=== PATIENT | male | born 1945 | race Caucasian/White ===

== ENCOUNTER 2023-04-22 18:49 | Inpatient (IN) ==
--- NOTE | 2023-04-22 18:56 | Emergency Department Note ---
Impression & Plan Sepsis, Complicated urinary tract infection, Acute renal insufficiency ED Provider Note NAME: MORIS HAMILTON AGE: 77 SEX: M ARRIVES VIA: Ambulance INFORMANT: Patient ED PROVIDER(S): Kvng Zhou MD CHIEF COMPLAINT: UTI, shaking, chills. PLAN: Disposition: Admit MEDICAL DECISION MAKING: The patient is a pleasant 77-year-old gentleman with a past medical history of hypertension, hyperlipidemia who presents to emergency department via EMS and, by his for evaluation of acute onset of generalized weakness with chills, shaking/rigors, lightheadedness and body aches in setting of having symptoms of urinary urgency for the past several days where he was seen by his primary care doctor today and had a urinalysis obtained that was suggestive of infection started on Bactrim for which he took his first dose this afternoon. Patient and his had plan to obtain with family this evening and given that he felt okay they proceeded with this plan but acutely felt show as he was walking into the restaurant. Patient denies chest pain, shortness of breath, diarrhea, cough/congestion. Of note, the patient did arrive to emergency department during time of high volume, acuity and prolonged emergency department waiting times. On my evaluation the patient is well-appearing no distress, afebrile however with rigors heart in 120s, blood pressure 150s/90s and vital signs otherwise stable. He appears clinically dry. Abdomen is nontender. He exhibits generalized weakness no focal deficits. EKG without overt acute ischemia. CXR negative for acute cardiopulmonary process per my personal preliminary review/interpretation. WBC 14 K with neutrophil predominance and no left shift, nonspecific. H/H 3.3/38.8 without prior for comparison. Chemistry without metabolic acidosis with bicarbonate 22. Creatinine is 1.86 suspected to reflect CAIN though unclear if patient has component of CKD. Lactic acid 2.0, at the upper limit of normal. Electrolytes without significant abnormality. LFTs unremarkable. Lipase not elevated. Procalcitonin is not elevated. UA is suspicious for infection with positive nitrites and leuk esterase as well as WBCs. No bacteria is present. CT abdomen pelvis was negative for acute abnormalities. Given the patient's primary care doctor had elected to initiate treatment with Bactrim suspect resistant organisms as well as Pseudomonas UTI less likely at this time though no prior cultures are available for comparison. Empiric treatment was initiated with IV ceftriaxone following blood cultures. Administration provided with 2 L normal saline with caution given patient's renal insufficiency and so 30 cc/kg was deferred. Patient and his are in agreement for admission for further management. [facility] the patient for [facility]. Triage Nursing notes reviewed and agree them. Prior/external medical records reviewed Vital Signs: reviewed Differential diagnosis: Viral syndrome, otitis, pharyngitis, pneumonia, influenza, meningitis, urinary tract infection, sepsis, bacteremia, as well as other pathologies. ER treatment provided: See below. Diagnostics interpreted by me: ECG: Sinus tachycardia with occasional PVCs, 114 bpm, no overt ST elevation or depression, QTc 443 QRS 88. Cardiac Monitoring: An order for continuous cardiac monitoring was placed and demonstrated Sinus tachycardia with occasional PVCs, 114 bpm. Laboratory studies: See below Imaging studies: See below Consultation(s): [facility] will [facility] the patient for admission. HPI: The patient is a pleasant 77-year-old gentleman with a past medical history of hypertension, hyperlipidemia who presents to emergency department via EMS and, by his for evaluation of acute onset of generalized weakness with chills, shaking/rigors, lightheadedness and body aches in setting of having symptoms of urinary urgency for the past several days where he was seen by his primary care doctor today and had a urinalysis obtained that was suggestive of infection started on Bactrim for which he took his first dose this afternoon. Patient and his had plan to obtain with family this evening and given that he felt okay they proceeded with this plan but acutely felt show as he was walking into the restaurant. Patient denies chest pain, shortness of breath, diarrhea, cough/congestion. ROS: See above HPI for pertinent positives & negatives. A total of 10 systems reviewed and were otherwise negative. VITALS:See Below PHYSICAL EXAMINATION: GENERAL: Awake, alert, ill-appearing with rigors but in no acute distress HENT: Normocephalic, atraumatic. Oropharynx with dry-cracked mucous membranes and otherwise unremarkable. EYES: Normal conjunctiva. Sclera non-icteric. NECK: Supple. No nuchal rigidity. FROM. No JVD. RESPIRATORY: Clear to auscultation. CARDIAC: Tachycardic rate, normal rhythm. Extremities warm and well perfused. Pulses equal. ABDOMEN: Soft, non-distended. No tenderness to palpation. No rebound or guarding. No masses. RECTAL: Deferred. MUSCULOSKELETAL: Chest examination reveals no tenderness. The back is symmetrical on inspection without obvious abnormality. There is no CVA tenderness to palpation. No joint edema. LOWER EXTREMITIES: Calves are equal size bilaterally and non-tender. No edema. No discoloration. NEURO: No focal sensory or motor deficits noted. Generalized weakness with 4/5 strength x 4 Ext. SKIN: No rash or jaundice noted. ED COURSE: Critical Care: I have personally spent greater than 35 minutes of critical care time in the direct management of this patient. This includes bedside care, interpretation of diagnostic studies, and testing, discussion with consultants, patient, and family members, and other required patient management activities. This 35 minutes is in excess of all separately billable procedures. Kvng Zhou MD Past Med/Surg History Medical History Neuropathy Diabetes Hyperlipidemia Hypertension Family History Other Family history non-contributory Social History Smoking Status: Former smoker Tobacco Type: Cigarettes Preferred Language: [place] Home Health Caregiver Required: No Current Living Situation: Spouse Feels Safe at Home: Yes Assistive Devices: Crutches, Walker and Wheelchair Allergies Allergies Allergy/AdvReac Type Severity Reaction Status Date / Time Penicillins Allergy Unknown Verified 04/22/23 22:02 Home Meds Home Medications Medication Instructions Recorded Confirmed alogliptin 1 dose PO QAM 04/22/23 04/22/23 cholecalciferol (vitamin D3) 25 25 mcg PO QAM 04/22/23 04/22/23 mcg (1,000 unit) tablet (Vitamin D3) cyanocobalamin (vitamin B-12) 1,000 mcg PO QAM 04/22/23 04/22/23 1,000 mcg tablet (Vitamin B-12) esomeprazole magnesium 40 mg 40 mg PO QAM 04/22/23 04/22/23 capsule,delayed release gemfibrozil 600 mg tablet 600 mg PO AMHS 04/22/23 04/22/23 insulin detemir U-100 100 unit/mL 45 unit subcut QPM 04/22/23 04/22/23 (3 mL) subcutaneous pen (Levemir FlexPen) losartan 25 mg tablet 25 mg PO QAM 04/22/23 04/22/23 rosuvastatin 40 mg tablet 20 mg PO HS 04/22/23 04/22/23 sulfamethoxazole 800 1 tab PO DAILY 04/22/23 04/22/23 mg-trimethoprim 160 mg tablet Results & Data (ED) Vital Signs Vital Signs - 24 hr 04/22/23 18:45 04/22/23 18:45 04/22/23 18:55 Temperature 36.7 C Temperature Source Oral Pulse Rate 120 H 112 H Pulse Rate from SpO2 Sensor Pulse Rhythm Regular Pulse Strength Normal Respiratory Rate 22 Respiratory Effort / Characteristics Non-Labored Spontaneous Respiratory Depth Normal Respiratory Pattern Regular Blood Pressure 159/91 H Blood Pressure Mean 113 Blood Pressure Position Sitting Pulse Oximetry 98 94 Oxygen Delivery Method Room Air Room Air Sepsis Recent Fever Within 48 Hours Yes Sepsis New/Unexplained Change in Mental Status Yes Sepsis Action Taken by Nursing Physician Notified 04/22/23 18:55 04/22/23 18:56 04/22/23 18:56 Temperature Temperature Source Pulse Rate 115 H 117 H Pulse Rate from SpO2 Sensor 112 H 117 H Pulse Rhythm Pulse Strength Respiratory Rate 17 20 Respiratory Effort / Characteristics Respiratory Depth Respiratory Pattern Blood Pressure 73/44 L Blood Pressure Mean 64 Blood Pressure Position Pulse Oximetry 93 95 Oxygen Delivery Method Sepsis Recent Fever Within 48 Hours Sepsis New/Unexplained Change in Mental Status Sepsis Action Taken by Nursing 04/22/23 18:57 04/22/23 18:57 04/22/23 19:00 Temperature Temperature Source Pulse Rate 113 H Pulse Rate from SpO2 Sensor 113 H Pulse Rhythm Pulse Strength Respiratory Rate 19 Respiratory Effort / Characteristics Respiratory Depth Respiratory Pattern Blood Pressure 163/99 H 159/91 H Blood Pressure Mean 111 114 Blood Pressure Position Pulse Oximetry 94 Oxygen Delivery Method Sepsis Recent Fever Within 48 Hours Sepsis New/Unexplained Change in Mental Status Sepsis Action Taken by Nursing 04/22/23 19:00 04/22/23 19:10 04/22/23 19:20 Temperature Temperature Source Pulse Rate 111 H 113 H 113 H Pulse Rate from SpO2 Sensor 114 H 103 H 111 H Pulse Rhythm Pulse Strength Respiratory Rate 20 20 23 Respiratory Effort / Characteristics Respiratory Depth Respiratory Pattern Blood Pressure Blood Pressure Mean Blood Pressure Position Pulse Oximetry 94 94 93 Oxygen Delivery Method Sepsis Recent Fever Within 48 Hours Sepsis New/Unexplained Change in Mental Status Sepsis Action Taken by Nursing 04/22/23 19:22 04/22/23 19:30 04/22/23 19:30 Temperature Temperature Source Pulse Rate 113 H Pulse Rate from SpO2 Sensor Pulse Rhythm Pulse Strength Respiratory Rate 20 Respiratory Effort / Characteristics Non-Labored Spontaneous Respiratory Depth Normal Respiratory Pattern Blood Pressure 154/88 H Blood Pressure Mean 108 Blood Pressure Position Pulse Oximetry Oxygen Delivery Method Sepsis Recent Fever Within 48 Hours Sepsis New/Unexplained Change in Mental Status Sepsis Action Taken by Nursing 04/22/23 19:40 04/22/23 19:44 04/22/23 20:29 Temperature Temperature Source Pulse Rate 112 H Pulse Rate from SpO2 Sensor Pulse Rhythm Pulse Strength Respiratory Rate 19 Respiratory Effort / Characteristics Respiratory Depth Respiratory Pattern Blood Pressure 126/94 Blood Pressure Mean 101 Blood Pressure Position Pulse Oximetry 95 Oxygen Delivery Method Room Air Sepsis Recent Fever Within 48 Hours Sepsis New/Unexplained Change in Mental Status Sepsis Action Taken by Nursing 04/22/23 20:29 04/22/23 20:30 04/22/23 20:30 Temperature Temperature Source Pulse Rate 108 H 115 H Pulse Rate from SpO2 Sensor 110 H Pulse Rhythm Pulse Strength Respiratory Rate 31 H Respiratory Effort / Characteristics Respiratory Depth Respiratory Pattern Blood Pressure 127/75 Blood Pressure Mean 90 Blood Pressure Position Pulse Oximetry 95 Oxygen Delivery Method Sepsis Recent Fever Within 48 Hours Sepsis New/Unexplained Change in Mental Status Sepsis Action Taken by Nursing 04/22/23 20:38 04/22/23 20:40 04/22/23 20:50 Temperature 38.0 C H Temperature Source Oral Pulse Rate 106 H 105 H Pulse Rate from SpO2 Sensor 105 H 105 H Pulse Rhythm Pulse Strength Respiratory Rate 16 24 Respiratory Effort / Characteristics Respiratory Depth Respiratory Pattern Blood Pressure Blood Pressure Mean Blood Pressure Position Pulse Oximetry 96 94 Oxygen Delivery Method Sepsis Recent Fever Within 48 Hours Sepsis New/Unexplained Change in Mental Status Sepsis Action Taken by Nursing 04/22/23 21:00 04/22/23 21:00 04/22/23 21:10 Temperature Temperature Source Pulse Rate 104 H 103 H Pulse Rate from SpO2 Sensor 101 H 103 H Pulse Rhythm Pulse Strength Respiratory Rate 20 24 Respiratory Effort / Characteristics Respiratory Depth Respiratory Pattern Blood Pressure 116/72 Blood Pressure Mean 86 Blood Pressure Position Pulse Oximetry 94 94 Oxygen Delivery Method Sepsis Recent Fever Within 48 Hours Sepsis New/Unexplained Change in Mental Status Sepsis Action Taken by Nursing 04/22/23 21:20 04/22/23 21:30 04/22/23 21:31 Temperature Temperature Source Pulse Rate 103 H 108 H Pulse Rate from SpO2 Sensor 103 H Pulse Rhythm Pulse Strength Respiratory Rate 24 20 Respiratory Effort / Characteristics Respiratory Depth Respiratory Pattern Blood Pressure 95/80 L Blood Pressure Mean 88 Blood Pressure Position Pulse Oximetry 95 Oxygen Delivery Method Sepsis Recent Fever Within 48 Hours Sepsis New/Unexplained Change in Mental Status Sepsis Action Taken by Nursing 04/22/23 21:31 04/22/23 21:40 04/22/23 21:50 Temperature Temperature Source Pulse Rate 105 H 103 H Pulse Rate from SpO2 Sensor Pulse Rhythm Pulse Strength Respiratory Rate 18 29 H 19 Respiratory Effort / Characteristics Respiratory Depth Respiratory Pattern Blood Pressure Blood Pressure Mean Blood Pressure Position Pulse Oximetry Oxygen Delivery Method Sepsis Recent Fever Within 48 Hours Sepsis New/Unexplained Change in Mental Status Sepsis Action Taken by Nursing 04/22/23 22:00 04/22/23 22:00 04/22/23 22:10 Temperature Temperature Source Pulse Rate 99 H 104 H Pulse Rate from SpO2 Sensor Pulse Rhythm Pulse Strength Respiratory Rate 20 22 Respiratory Effort / Characteristics Respiratory Depth Respiratory Pattern Blood Pressure 120/75 Blood Pressure Mean 86 Blood Pressure Position Pulse Oximetry Oxygen Delivery Method Sepsis Recent Fever Within 48 Hours Sepsis New/Unexplained Change in Mental Status Sepsis Action Taken by Nursing 04/22/23 22:20 04/22/23 22:30 04/22/23 22:30 Temperature Temperature Source Pulse Rate 105 H 96 H Pulse Rate from SpO2 Sensor Pulse Rhythm Pulse Strength Respiratory Rate 20 21 Respiratory Effort / Characteristics Respiratory Depth Respiratory Pattern Blood Pressure 111/61 Blood Pressure Mean 87 Blood Pressure Position Pulse Oximetry Oxygen Delivery Method Sepsis Recent Fever Within 48 Hours Sepsis New/Unexplained Change in Mental Status Sepsis Action Taken by Nursing 04/22/23 22:40 04/22/23 22:50 04/22/23 23:00 Temperature Temperature Source Pulse Rate 93 H 101 H 96 H Pulse Rate from SpO2 Sensor Pulse Rhythm Pulse Strength Respiratory Rate 21 20 15 Respiratory Effort / Characteristics Respiratory Depth Respiratory Pattern Blood Pressure Blood Pressure Mean Blood Pressure Position Pulse Oximetry Oxygen Delivery Method Sepsis Recent Fever Within 48 Hours Sepsis New/Unexplained Change in Mental Status Sepsis Action Taken by Nursing 04/22/23 23:00 04/22/23 23:01 04/22/23 23:10 Temperature Temperature Source Pulse Rate 95 H 96 H Pulse Rate from SpO2 Sensor Pulse Rhythm Pulse Strength Respiratory Rate 24 Respiratory Effort / Characteristics Respiratory Depth Respiratory Pattern Blood Pressure 104/64 Blood Pressure Mean 73 Blood Pressure Position Pulse Oximetry Oxygen Delivery Method Sepsis Recent Fever Within 48 Hours Sepsis New/Unexplained Change in Mental Status Sepsis Action Taken by Nursing 04/22/23 23:20 04/22/23 23:30 04/22/23 23:40 Temperature Temperature Source Pulse Rate 99 H 112 H 104 H Pulse Rate from SpO2 Sensor Pulse Rhythm Pulse Strength Respiratory Rate 17 21 22 Respiratory Effort / Characteristics Respiratory Depth Respiratory Pattern Blood Pressure Blood Pressure Mean Blood Pressure Position Pulse Oximetry Oxygen Delivery Method Sepsis Recent Fever Within 48 Hours Sepsis New/Unexplained Change in Mental Status Sepsis Action Taken by Nursing 04/22/23 23:50 04/23/23 00:00 04/23/23 00:00 Temperature Temperature Source Pulse Rate 98 H 93 H Pulse Rate from SpO2 Sensor Pulse Rhythm Pulse Strength Respiratory Rate 14 25 H Respiratory Effort / Characteristics Respiratory Depth Respiratory Pattern Blood Pressure 108/64 Blood Pressure Mean 72 Blood Pressure Position Pulse Oximetry Oxygen Delivery Method Sepsis Recent Fever Within 48 Hours Sepsis New/Unexplained Change in Mental Status Sepsis Action Taken by Nursing Laboratory Data Attestation: I reviewed the patient's lab results. 04/22/23 19:00 04/23/23 00:28 Lab Results 04/22/23 04/22/23 04/22/23 Range/Units 19:00 19:10 19:22 WBC 14.00 H (4.8-10.8) K/ul RBC 4.45 L (4.70-6.10) M/uL Hgb 13.3 L (14.0-18.0) g/dl POC Hgb 13.6 L (14.0-18.0) g/dl Hct 38.8 L (42.0-52.0) % POC Hct 40 L (42-52) % MCV 87.2 (80.0-100.0) fL MCH 29.9 (25.0-34.0) pg MCHC 34.3 (32.0-36.0) g/dL RDW Std Deviation 42.3 (36.4-46.3) fL RDW Coeff of Natalie 13.3 (11.5-14.5) % Plt Count 232 (130-400) K/uL MPV 9.3 L (9.4-12.4) fL Immature Gran % (Auto) 0.6 % Neut % (Auto) 86.1 % Lymph % (Auto) 7.4 % Cache % (Auto) 4.1 % Eos % (Auto) 1.4 % Baso % (Auto) 0.4 % Neut # (Auto) 12.05 H (1.40-6.50) K/uL Lymph # (Auto) 1.03 L (1.20-3.40) K/uL Cache # (Auto) 0.58 (0.11-0.59) K/uL Eos # (Auto) 0.19 (0.00-0.50) K/uL Baso # (Auto) 0.06 (0.00-0.20) K/uL Immature Gran # (Auto) 0.09 (0.01-0.20) K/uL POC Sodium 139 (135-144) mmol/L Sodium 137 (136-145) mmol/L POC Potassium 4.7 (3.3-5.0) mmol/L Potassium 4.4 (3.5-5.1) mmol/L POC Chloride 105 (101-112) mmol/L Chloride 102 (98-107) mmol/L Carbon Dioxide 22 (21-32) mmol/L POC Total CO2 22 L (24-31) mmol/L Anion Gap 13 H (3-11) POC Anion Gap 17.0 (16-25) mmol/L POC BUN 42 H (7-18) mg/dl BUN 34 H (6-23) mg/dl Creatinine 1.86 H (0.6-1.4) mg/dl POC Creatinine 1.9 H (0.6-1.3) mg/dl Est Cr Clr Drug Dosing 37.1 ml/min Est GFR ( Amer) 39.8 ml/min Est GFR (Non-Af Amer) 34.4 ml/min BUN/Creatinine Ratio 18.3 (10-20) Glucose 161 H (70-99(Fasting)) mg/dl POC Glucose (other) 165 H (70-99) mg/dl Lactate 2.0 (0.4-2.0) mmol/L Calcium 9.7 (8.6-10.3) mg/dl POC Ioniz Calcium Thaddeus 1.18 (1.12-1.32) mmol/l Phosphorus 4.1 (2.5-4.9) mg/dl Magnesium 1.7 (1.7-2.4) mg/dl Total Bilirubin 0.5 (0.2-1.0) mg/dl Direct Bilirubin 0.1 (0-0.2) mg/dl AST 22 (13-39) U/L ALT 12 (7-52) U/L Alkaline Phosphatase 86 (34-104) U/L Total Creatine Kinase 98 (30-223) U/L Total Protein 8.3 (6.0-8.3) gm/dl Albumin 4.5 (3.4-5.0) gm/dl Lipase 16 (11-82) U/L Procalcitonin 0.21 (0-0.5) ng/ml Urine Color Urine Appearance (Clear) Urine pH (4.5-7.5) Ur Specific Brant (1.000-1.030) Urine Protein (Negative) Urine Glucose (UA) (Negative) Urine Ketones (Negative) Urine Blood (Negative) Urine Nitrite (Negative) Urine Bilirubin (Negative) Urine Urobilinogen (Negative) Ur Leukocyte Esterase (Negative) Urine WBC (Auto) (0-5) /hpf Urine RBC (Auto) (0-4) /hpf U Hyaline Cast (Auto) (0-5) /lpf U Epithel Cells (Auto) (0-5) /lpf Urine Bacteria (Auto) (Negative) Adenovirus (PCR) (NotDetected) B. pertussis DNA (PCR) (NotDetected) B.parapertussis DNA PCR (NotDetected) C. pneumoniae DNA (PCR) (NotDetected) Coronavirus OC43 (PCR) (NotDetected) Coronavirus HKU1 (PCR) (NotDetected) Coronavirus 229E (PCR) (NotDetected) SARS-CoV-2 (PCR) (NotDetected) Coronavirus NL63 (PCR) (NotDetected) Human Metapneumovir PCR (NotDetected) Influenza Type A (PCR) (NotDetected) Influenza Type B (PCR) (NotDetected) M. pneumoniae (PCR) (NotDetected) Parainfluenza 1 (PCR) (NotDetected) Parainfluenza 2 (PCR) (NotDetected) Parainfluenza 3 (PCR) (NotDetected) Parainfluenza 4 (PCR) (NotDetected) RSV (PCR) (NotDetected) Entero/Rhino (PCR) (NotDetected) 04/22/23 04/22/23 Range/Units 19:30 22:53 WBC (4.8-10.8) K/ul RBC (4.70-6.10) M/uL Hgb (14.0-18.0) g/dl POC Hgb (14.0-18.0) g/dl Hct (42.0-52.0) % POC Hct (42-52) % MCV (80.0-100.0) fL MCH (25.0-34.0) pg MCHC (32.0-36.0) g/dL RDW Std Deviation (36.4-46.3) fL RDW Coeff of Natalie (11.5-14.5) % Plt Count (130-400) K/uL MPV (9.4-12.4) fL Immature Gran % (Auto) % Neut % (Auto) % Lymph % (Auto) % Cache % (Auto) % Eos % (Auto) % Baso % (Auto) % Neut # (Auto) (1.40-6.50) K/uL Lymph # (Auto) (1.20-3.40) K/uL Cache # (Auto) (0.11-0.59) K/uL Eos # (Auto) (0.00-0.50) K/uL Baso # (Auto) (0.00-0.20) K/uL Immature Gran # (Auto) (0.01-0.20) K/uL POC Sodium (135-144) mmol/L Sodium (136-145) mmol/L POC Potassium (3.3-5.0) mmol/L Potassium (3.5-5.1) mmol/L POC Chloride (101-112) mmol/L Chloride (98-107) mmol/L Carbon Dioxide (21-32) mmol/L POC Total CO2 (24-31) mmol/L Anion Gap (3-11) POC Anion Gap (16-25) mmol/L POC BUN (7-18) mg/dl BUN (6-23) mg/dl Creatinine (0.6-1.4) mg/dl POC Creatinine (0.6-1.3) mg/dl Est Cr Clr Drug Dosing ml/min Est GFR ( Amer) ml/min Est GFR (Non-Af Amer) ml/min BUN/Creatinine Ratio (10-20) Glucose (70-99(Fasting)) mg/dl POC Glucose (other) (70-99) mg/dl Lactate (0.4-2.0) mmol/L Calcium (8.6-10.3) mg/dl POC Ioniz Calcium Thaddeus (1.12-1.32) mmol/l Phosphorus (2.5-4.9) mg/dl Magnesium (1.7-2.4) mg/dl Total Bilirubin (0.2-1.0) mg/dl Direct Bilirubin (0-0.2) mg/dl AST (13-39) U/L ALT (7-52) U/L Alkaline Phosphatase (34-104) U/L Total Creatine Kinase (30-223) U/L Total Protein (6.0-8.3) gm/dl Albumin (3.4-5.0) gm/dl Lipase (11-82) U/L Procalcitonin (0-0.5) ng/ml Urine Color Yellow Urine Appearance Cloudy A (Clear) Urine pH 6.0 (4.5-7.5) Ur Specific Brant 1.012 (1.000-1.030) Urine Protein 1+ H (Negative) Urine Glucose (UA) Negative (Negative) Urine Ketones Negative (Negative) Urine Blood 2+ H (Negative) Urine Nitrite Positive A (Negative) Urine Bilirubin Negative (Negative) Urine Urobilinogen Negative (Negative) Ur Leukocyte Esterase 1+ H (Negative) Urine WBC (Auto) >30 H (0-5) /hpf Urine RBC (Auto) >30 H (0-4) /hpf U Hyaline Cast (Auto) 1-5 (0-5) /lpf U Epithel Cells (Auto) 0-5 (0-5) /lpf Urine Bacteria (Auto) Negative (Negative) Adenovirus (PCR) Not Detected (NotDetected) B. pertussis DNA (PCR) Not Detected (NotDetected) B.parapertussis DNA PCR Not Detected (NotDetected) C. pneumoniae DNA (PCR) Not Detected (NotDetected) Coronavirus OC43 (PCR) Not Detected (NotDetected) Coronavirus HKU1 (PCR) Not Detected (NotDetected) Coronavirus 229E (PCR) Not Detected (NotDetected) SARS-CoV-2 (PCR) Not Detected (NotDetected) Coronavirus NL63 (PCR) Not Detected (NotDetected) Human Metapneumovir PCR Not Detected (NotDetected) Influenza Type A (PCR) Not Detected (NotDetected) Influenza Type B (PCR) Not Detected (NotDetected) M. pneumoniae (PCR) Not Detected (NotDetected) Parainfluenza 1 (PCR) Not Detected (NotDetected) Parainfluenza 2 (PCR) Not Detected (NotDetected) Parainfluenza 3 (PCR) Not Detected (NotDetected) Parainfluenza 4 (PCR) Not Detected (NotDetected) RSV (PCR) Not Detected (NotDetected) Entero/Rhino (PCR) Not Detected (NotDetected) Administered Medications Sodium Chloride (Nss) 1,000 mls @ 100 mls/hr IV .Q10H ONE Stop: 04/23/23 12:59 Last Admin: 04/23/23 02:54 Dose: 100 mls/hr Documented By: FLORENTINO Insulin Aspart (Insulin Aspart Per Unit Charge) 0 units SC ACHS [facility] Stop: 05/23/23 02:21 Last Admin: 04/23/23 04:22 Dose: 3 units Documented By: [email or web address] Co-signed By: MARIAM Discontinued Medications Sodium Chloride (Nss) 1,000 mls @ 999 mls/hr IV .Q1H1M [facility] Stop: 04/22/23 21:15 Last Infusion: 04/22/23 21:35 Dose: Infused Documented By: Admin: 04/22/23 20:31 Dose: 999 mls/hr Documented By: Infusion: 04/22/23 20:31 Dose: Infused Documented By: Admin: 04/22/23 19:34 Dose: 999 mls/hr Documented By: OWEN Acetaminophen (Ofirmev) 1,000 mg in 100 mls @ 400 mls/hr IV NOW STA Stop: 04/22/23 19:25 Last Infusion: 04/22/23 20:00 Dose: Infused Documented By: Admin: 04/22/23 19:34 Dose: 400 mls/hr Documented By: OWEN Ceftriaxone Sodium (Rocephin) 2,000 mg in 50 mls @ 100 mls/hr IV NOW STA Stop: 04/22/23 19:40 Last Infusion: 04/22/23 20:38 Dose: Infused Documented By: Admin: 04/22/23 19:34 Dose: 100 mls/hr Documented By: OWEN Magnesium Sulfate/Dextrose (Magnesium Sulfate / D5w) 1 gm in 100 mls @ 50 mls/hr IV Q2H [facility] Stop: 04/23/23 01:59 Last Infusion: 04/23/23 02:51 Dose: Infused Documented By: Admin: 04/23/23 00:51 Dose: 50 mls/hr Documented By: Infusion: 04/23/23 00:49 Dose: Infused Documented By: Admin: 04/22/23 22:49 Dose: 50 mls/hr Documented By: FLORENTINO Sodium Chloride (Nss) 1,000 mls @ 100 mls/hr IV .Q10H ONE Stop: 04/23/23 08:20 Last Infusion: 04/23/23 02:01 Dose: Infused Documented By: Admin: 04/22/23 22:41 Dose: 100 mls/hr Documented By: FLORENTINO Cefepime HCl (Maxipime) 2,000 mg in 20 mls @ 5 mls/min IV NOW STA; Protocol Stop: 04/23/23 00:09 Last Admin: 04/23/23 00:48 Dose: 5 mls/min Documented By: FLORENTINO Sodium Chloride (Nss) 500 mls @ 500 mls/hr IV .Q1H ONE Stop: 04/23/23 02:59 Last Infusion: 04/23/23 03:01 Dose: Infused Documented By: Admin: 04/23/23 02:01 Dose: 500 mls/hr Documented By: FLORENTINO Insulin Glargine (Lantus Per Unit Charge) 5 units SQ NOW STA Stop: 04/23/23 04:12 Last Admin: 04/23/23 04:38 Dose: 5 units Documented By: AGUILA Co-signed By: MARIAM Magnesium Sulfate/Dextrose (Magnesium Sulfate 1gm / D5w Bag) Confirm Administered Dose 1 gm IV .STK-MED ONE Stop: 04/22/23 22:00 Last Admin: 04/22/23 22:41 Dose: Not Given Documented By: FLORENTINO Miscellaneous Information (Patient's Allergy Info Needs Entered) 1 each N/A NOW STA Stop: 04/22/23 21:59 Last Admin: 04/22/23 22:31 Dose: Not Given Documented By: FLORENTINO Ondansetron HCl (Ondansetron Inj 2 Mg/Ml 2 Ml Vial) 4 mg IV NOW STA Stop: 04/22/23 19:16 Last Admin: 04/22/23 19:34 Dose: 4 mg Documented By: OWEN Piperacillin Sod/Tazobactam Sod (Piperacillin/Tazobactam 4.5 Gm/100ml D5w) Confirm Administered Dose 4.5 gm IV .STK-MED ONE Stop: 04/22/23 22:00 Last Admin: 04/22/23 22:41 Dose: Not Given Documented By: FLORENTINO Imaging Data Radiologist's Impression: Chest X-Ray 04/22/23 19:11 SINGLE VIEW CHEST CLINICAL HISTORY: Sepsis. FINDINGS: An AP, portable, upright chest radiograph is obtained. No prior studies are available for comparison at the time of dictation. The heart is enlarged. The pulmonary vasculature is noncongested. Nonspecific interstitial thickening is likely chronic. There is bibasilar scarring/atelectasis. No airspace consolidation or large pleural effusion is identified. No pneumothorax is seen. The skeletal structures are osteopenic. The bony thorax is grossly intact. IMPRESSION: Cardiomegaly with no acute cardiopulmonary abnormality identified. ACT 112: Negative or not required by law. Electronically signed by: Jin Covarrubias M.D. 04/22/2023 8:00 PM Abdomen/Pelvis CT 04/22/23 19:45 Exam(s): CT ABDOMEN + PELVIS Without Contrast EXAM: CT Abdomen and Pelvis Without Intravenous Contrast CLINICAL HISTORY: Reason for exam: sepsis, uti, cain. TECHNIQUE: Axial computed tomography images of the abdomen and pelvis without intravenous contrast. CTDI is 24.18 mGy and DLP is 1272 mGy-cm. Automated exposure control was utilized for the study. A dose lowering technique was utilized adhering to the principles of ALARA. COMPARISON: No relevant prior studies available. FINDINGS: Lung bases: Unremarkable. No mass. No consolidation. Mediastinum: Small hiatus hernia. ABDOMEN: Liver: Unremarkable. Gallbladder and bile ducts: Unremarkable. No calcified stones. No ductal dilation. Pancreas: Unremarkable. No ductal dilation. Spleen: Unremarkable. No splenomegaly. Adrenals: Unremarkable. No mass. Kidneys and ureters: Unremarkable. No obstructing stones. No hydronephrosis. Stomach and bowel: Unremarkable. No obstruction. No mucosal thickening. PELVIS: Appendix: No findings to suggest acute appendicitis. Bladder: Unremarkable. No stones. Reproductive: Prostatectomy. ABDOMEN and PELVIS: Intraperitoneal space: Unremarkable. No free air. No significant fluid collection. Bones/joints: Severe degenerative disc disease changes seen in the lumbar spine. No acute fracture. No dislocation. Soft tissues: Unremarkable. Vasculature: Unremarkable. No abdominal aortic aneurysm. Lymph nodes: Unremarkable. No enlarged lymph nodes. IMPRESSION: No acute abdominal process identified Electronically signed by: Jon Cruz MD 04/22/23 20:35 PM Discharge Plan Visit Data Chief Complaint: Weakness Stated Complaint: SUDDEN ONSET WEAKNESS, CONFUSION, SHAKING ED Provider: Kvng Zhou Discharge Problem: Sepsis, Complicated urinary tract infection, Acute renal insufficiency Discharge Instructions Interventions: ED Discharge Assessment Last Done: 04/23/23 02:22 Discharge Problem: Sepsis Qualifiers: Sepsis type: sepsis due to unspecified organism Sepsis acute organ dysfunction status: with acute organ dysfunction Severe sepsis acute organ dysfunction type: acute renal failure Acute renal failure type: unspecified Severe sepsis shock status: without septic shock Qualified Code(s): A41.9 - Sepsis, unspecified organism
[2023-04-22] MEDS ORDERED: cefTRIAXone SODIUM 2,000 MG/50 ML BAG IV STA (19:11)
[2023-04-22] MEDS ORDERED: ACETAMINOPHEN 1,000 MG/100 ML VIAL IV STA (19:11)
[2023-04-22] MEDS ORDERED: ONDANSETRON INJ 2 MG/ML 2 ML VIAL IV STA (19:15)
[2023-04-22 19:27] LABS: Basophils # (auto) 0.06 K/uL (0.00-0.20); Basophils % (auto) 0.4 %; Eosinophils # (auto) 0.19 K/uL (0.00-0.50); Eosinophils % (auto) 1.4 %; Hematocrit (blood only) 38.8 % (42.0-52.0); Hemoglobin 13.3 g/dl (14.0-18.0); Immature Granulocytes # (auto) 0.09 K/uL (0.01-0.20); Immature Granulocytes % (auto) 0.6 %; Lymphocytes # (auto) 1.03 K/uL (1.20-3.40); Lymphocytes % (auto) 7.4 %; Mean Corpuscular Hemoglobin 29.9 pg (25.0-34.0); Mean Corpuscular Hgb Conc 34.3 g/dL (32.0-36.0); Mean Corpuscular Volume 87.2 fL (80.0-100.0); Mean Platelet Volume 9.3 fL (9.4-12.4); Monocytes # (auto) 0.58 K/uL (0.11-0.59); Monocytes % (auto) 4.1 %; Neutrophils # (auto) 12.05 K/uL (1.40-6.50); Neutrophils % (auto) 86.1 %; Platelet Count 232 K/uL (130-400); RDW Coefficient of Variation 13.3 % (11.5-14.5); RDW Standard Deviation 42.3 fL (36.4-46.3); Red Blood Count 4.45 M/uL (4.70-6.10)
[2023-04-22 19:34] LABS: iSTAT Creatinine 1.9 mg/dl (0.6-1.3); iSTAT Hemoglobin 13.6 g/dl (14.0-18.0); iSTAT Ionized Calcium 1.18 mmol/l (1.12-1.32); iSTAT Potassium 4.7 mmol/L (3.3-5.0)
[2023-04-22] MEDS: SODIUM CHLORIDE 0.9% 1,000 ML IV SCH ×2 (19:34→20:31)
--- NOTE | 2023-04-22 20:02 | XRay Report ---
SINGLE VIEW CHEST CLINICAL HISTORY: Sepsis. FINDINGS: An AP, portable, upright chest radiograph is obtained. No prior studies are available for c omparison at the time of dictation. The heart is enlarged. The pulmonary vasculature is noncongested. Nonspecific interstitial thickening is likely chronic. There is bibasilar scarring/atelectasis. No a irspace consolidation or large pleural effusion is identified. No pneumothorax is seen. The skeletal structures are osteopenic. The bony thorax is grossly intact. IMPRESSION: Cardiomegaly with no acute cardiopulmonary abnormality identified. ACT 112: Negative or not required by law. Electronically signed by: Jin Covarrubias M.D. 04/22/2023 8:00 PM
[2023-04-22 20:04] LABS: Alanine Aminotransferase 12 U/L (7-52); Albumin Level 4.5 gm/dl (3.4-5.0); Alkaline Phosphatase 86 U/L (34-104); Anion Gap 13 (3-11); Aspartate Aminotransferase 22 U/L (13-39); BUN Creatinine Ratio 18.3 (10-20); Bilirubin,Total 0.5 mg/dl (0.2-1.0); Blood Urea Nitrogen 34 mg/dl (6-23); Calcium 9.7 mg/dl (8.6-10.3); Carbon Dioxide 22 mmol/L (21-32); Chloride 102 mmol/L (98-107); Creatine Kinase 98 U/L (30-223); Creatinine Clr Calc Pharmacy 37.1 ml/min; Est GFR (African American) 39.8 ml/min; Est GFR (Non-African American) 34.4 ml/min; Glucose 161 mg/dl (70-99(Fasting)); Lipase 16 U/L (11-82); Magnesium 1.7 mg/dl (1.7-2.4); Phosphorus 4.1 mg/dl (2.5-4.9); Potassium 4.4 mmol/L (3.5-5.1); Sodium 137 mmol/L (136-145); Total Protein 8.3 gm/dl (6.0-8.3)
--- NOTE | 2023-04-22 20:37 | CT Scan Report ---
Exam(s): CT ABDOMEN + PELVIS Without Contrast EXAM: CT Abdomen and Pelvis Without Intravenous Contrast CLINICAL HISTORY: Reason for exam: sepsis, uti, marcela. TECHNIQUE: Axial computed tomography images of the abdomen and pelvis without intravenous contrast. CTDI is 24.18 mGy and DLP is 1272 mGy-cm. Automated exposure control was utilized for the study. A dose lowering technique was utilized adhering to the principles of ALARA. COMPARISON: No relevant prior studies available. FINDINGS: Lung bases: Unremarkable. No mass. No consolidation. Mediastinum: Small hiatus hernia. ABDOMEN: Liver: Unremarkable. Gallbladder and bile ducts: Unremarkable. No calcified stones. No ductal dilation. Pancreas: Unremarkable. No ductal dilation. Spleen: Unremarkable. No splenomegaly. Adrenals: Unremarkable. No mass. Kidneys and ureters: Unremarkable. No obstructing stones. No hydronephrosis. Stomach and bowel: Unremarkable. No obstruction. No mucosal thickening. PELVIS: Appendix: No findings to suggest acute appendicitis. Bladder: Unremarkable. No stones. Reproductive: Prostatectomy. ABDOMEN and PELVIS: Intraperitoneal space: Unremarkable. No free air. No significant fluid collection. Bones/joints: Severe degenerative disc disease changes seen in the lumbar spine. No acute fracture. No dislocation. Soft tissues: Unremarkable. Vasculature: Unremarkable. No abdominal aortic aneurysm. Lymph nodes: Unremarkable. No enlarged lymph nodes. IMPRESSION: No acute abdominal process identified Electronically signed by: Jon Cruz MD 04/22/23 20:35 PM
[2023-04-22 20:53] LABS: Adenovirus PCR Not Detected (NotDetected); Bordetella parapertussis PCR Not Detected (NotDetected); Bordetella pertussis PCR Not Detected (NotDetected); Chlamydia pneumoniae PCR Not Detected (NotDetected); Coronavirus 229E PCR Not Detected (NotDetected); Coronavirus CoV-2 (COVID19)PCR Not Detected (NotDetected); Coronavirus HKU1 PCR Not Detected (NotDetected); Coronavirus NL63 PCR Not Detected (NotDetected); Coronavirus OC43PCR Not Detected (NotDetected); Human Metapneumovirus PCR Not Detected (NotDetected); Influenza A PCR Not Detected (NotDetected); Influenza B PCR Not Detected (NotDetected); Mycoplasma pneumoniae PCR Not Detected (NotDetected); Parainfluenza Virus 1 PCR Not Detected (NotDetected); Parainfluenza Virus 2 PCR Not Detected (NotDetected); Parainfluenza Virus 3 PCR Not Detected (NotDetected); Parainfluenza Virus 4 PCR Not Detected (NotDetected); Respiratory Syncytial VirusPCR Not Detected (NotDetected); Rhinovirus/Enterovirus PCR Not Detected (NotDetected)
[2023-04-22] MEDS ORDERED: Patient's ALLERGY Info needs ENTERED STA (21:58)
[2023-04-22] MEDS ORDERED: MAGNESIUM SULFATE 1GM / D5W BAG IV ONE (21:59)
[2023-04-22] MEDS ORDERED: PIPERACILLIN/TAZOBACTAM 4.5 GM/100ML D5W IV ONE (21:59)
[2023-04-22] MEDS ORDERED: PIPERACILLIN/TAZOBACTAM 4.5 GM/100 ML BAG IV ONE (22:00)
[2023-04-22] MEDS ORDERED: SODIUM CHLORIDE 0.9% 1,000 ML IV ONE (22:21)
[2023-04-22] MEDS: MAGNESIUM SULFATE / D5W 1 GM/100 ML BAG IV SCH (22:49)
[2023-04-22 23:23] LABS: Appearance Urine Cloudy (Clear); Bacteria Urine Automated Negative (Negative); Bilirubin Urine Negative (Negative); Blood Urine 2+ (Negative); Color Urine Yellow; Epithelial Cell Urine Auto 0-5 /lpf (0-5); Glucose Urine UA Negative (Negative); Ketones Urine Negative (Negative); Leukocyte Esterase Urine 1+ (Negative); Nitrite Urine Positive (Negative); Protein Urine 1+ (Negative); RBC Urine Automated >30 /hpf (0-4); Specific Gravity Urine 1.012 (1.000-1.030); Urobilinogen Urine Negative (Negative); WBC Urine Automated >30 /hpf (0-5)
--- NOTE | 2023-04-23 00:05 | History & Physical Report ---
Date of Service April 23, 2023 Assessment & Plan (1) Severe sepsis: Plan: SIRS plus ARF on CKD (baseline kidney dysfunction unknown) Secondary to complicated UTI hypertension, BP on the lower side hyperlipidemia on statin Rx DM2 insulin requiring, unknown baseline control hx amyloidosis hx prostate cancer status post surgery short-term memory loss as per family, patient currently mentating well Anemia, unknown duration past tobacco abuse Medical telemetry CS, Cefepime Monitor creatinine response to IVF Renal ultrasound if without improvement Appropriate to hold home BP meds for now Follow outpatient urine CS, recent CBC, CHEM (to establish baseline hemoglobin, creatinine) from PCP's office (Dr. Blum) Basal bolus insulin adjusted for clear liquid diet for now, ISS BG goal 1 10-1 40, carb count coverage, check hemoglobin A1c DVT prophylaxis. Heparin subcu Full code Patient requesting updates from providers. Ms. Teo Joyner, contact #[phone]. Text document was generated using [employer] voice recognition software. It may contain grammatical or spelling errors. Kindly contact undersigned for clarification of any documentation item in question. History of Present Illness Chief Complaint: Weakness Primary Care Provider: Aurelio Blum MD History obtained from patient, family, and records. Medical history significant for hypertension, hyperlipidemia, DM2 insulin requiring, CRI (unknown baseline), amyloidosis, prostate cancer status post surgery, history urolithiasis, GERD, short-term memory loss as per family, past tobacco abuse. Patient is a resident of [place], [place] who is currently in town to celebrate the birthday of her daughter who lives locally. Yesterday morning, patient woke up feeling weak. Some urinary retention without pain or gross hematuria. Increasing weakness noted. Patient seen at PCP's office yesterday. Outpatient UA showed possible infection. Bactrim prescribed by outpatient provider. Worsening weakness despite first dose of Bactrim prior to leaving home. Lowest SBP of 70s noted at the ER. IV ceftriaxone administered at the ER. Patient currently feeling much better. SBP currently 100s. 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 Allergies Allergy/AdvReac Type Severity Reaction Status Date / Time Penicillins Allergy Unknown Verified 04/22/23 22:02 Home Medications Medication Instructions Recorded Confirmed Type alogliptin 1 dose PO QAM 04/22/23 04/22/23 History cholecalciferol (vitamin D3) 25 25 mcg PO QAM 04/22/23 04/22/23 History mcg (1,000 unit) tablet (Vitamin D3) cyanocobalamin (vitamin B-12) 1,000 mcg PO QAM 04/22/23 04/22/23 History 1,000 mcg tablet (Vitamin B-12) esomeprazole magnesium 40 mg 40 mg PO QAM 04/22/23 04/22/23 History capsule,delayed release gemfibrozil 600 mg tablet 600 mg PO AMHS 04/22/23 04/22/23 History insulin detemir U-100 100 unit/mL 45 unit subcut QPM 04/22/23 04/22/23 History (3 mL) subcutaneous pen (Levemir FlexPen) losartan 25 mg tablet 25 mg PO QAM 04/22/23 04/22/23 History rosuvastatin 40 mg tablet 20 mg PO HS 04/22/23 04/22/23 History sulfamethoxazole 800 1 tab PO DAILY 04/22/23 04/22/23 History mg-trimethoprim 160 mg tablet Past Med/Surg History Medical History Neuropathy Diabetes Hyperlipidemia Hypertension Family History Other Family history non-contributory Social History Smoking Status: Former smoker Tobacco Type: Cigarettes Preferred Language: [place] Staffing Consultant Required: No Current Living Situation: Spouse Feels Safe at Home: Yes Assistive Devices: Crutches, Walker and Wheelchair Review of Systems Review of Systems: As per HPI, all other systems reviewed and negative Physical Exam Physical Exam: GENERAL: Comfortable, pleasant, oriented to year no respiratory distress SKIN: Pallor, warm HEENT: Pale palpebral conjunctivae, no ptosis, dry buccal mucosa NECK : Supple, no tenderness CHEST : CTA, no tenderness HEART : RRR, no obvious murmurs ABDOMEN: Some distention, nontender EXTREMITIES : No LE swelling/tenderness, no other conspicuous deformities noted NEUROLOGIC : Coherent, no facial asymmetry, gait and stance not assessed Results & Data Results & Data Vital Signs (Past 12 Hours) Vital Signs Temp Pulse Resp BP Pulse Ox O2 Del Method 04/22/23 23:01 95 H 04/22/23 21:50 19 04/22/23 21:40 103 H 29 H 04/22/23 21:31 105 H 18 04/22/23 21:31 95/80 L 04/22/23 21:30 108 H 20 04/22/23 21:20 103 H 24 95 04/22/23 21:10 103 H 24 94 04/22/23 21:00 116/72 04/22/23 21:00 104 H 20 94 04/22/23 20:50 105 H 24 94 04/22/23 20:40 106 H 16 96 04/22/23 20:38 38.0 C H 04/22/23 20:30 115 H 31 H 95 04/22/23 20:30 127/75 04/22/23 20:29 108 H 04/22/23 20:29 126/94 04/22/23 19:44 95 Room Air 04/22/23 19:40 112 H 19 04/22/23 19:30 113 H 20 04/22/23 19:30 154/88 H 04/22/23 19:20 113 H 23 93 04/22/23 19:10 113 H 20 94 04/22/23 19:00 111 H 20 94 04/22/23 19:00 159/91 H 04/22/23 18:57 163/99 H 04/22/23 18:57 113 H 19 94 04/22/23 18:56 117 H 20 95 04/22/23 18:56 73/44 L 04/22/23 18:55 115 H 17 93 04/22/23 18:55 112 H 04/22/23 18:45 94 Room Air 04/22/23 18:45 36.7 C 120 H 22 159/91 H 98 Room Air Laboratory Results Laboratory Results WBC 14.00 K/ul (4.8-10.8) H 04/22/23 19:00 RBC 4.45 M/uL (4.70-6.10) L 04/22/23 19:00 Hgb 13.3 g/dl (14.0-18.0) L 04/22/23 19:00 POC Hgb 13.6 g/dl (14.0-18.0) L 04/22/23 19: Hct 38.8 % (42.0-52.0) L 04/22/23 19:00 POC Hct 40 % (42-52) L 04/22/23: MCV 87.2 fL (80.0-100.0) 04/22/23 19:00 MCH 29.9 pg (25.0-34.0) 04/22/23 19: MCHC 34.3 g/dL (32.0-36.0) 04/22/23 19: RDW Std Deviation 42.3 fL (36.4-46.3) 04/22/23 19: RDW Coeff of Natalie 13.3 % (11.5-14.5) 04/22/23 19: Plt Count 232 K/uL (130-400) 04/22/23 19: MPV 9.3 fL (9.4-12.4) L 04/22/23 19: Immature Gran % (Auto) 0.6 % 04/22/23 19:00 Neut % (Auto) 86.1 % 04/22/23 19:00 Lymph % (Auto) 7.4 % 04/22/23 19:00 [place] % (Auto) 4.1 % 04/22/23 19:00 Eos % (Auto) 1.4 % 04/22/23 19:00 Baso % (Auto) 0.4 % 04/22/23 19:00 Neut # (Auto) 12.05 K/uL (1.40-6.50) H 04/22/23 19:00 Lymph # (Auto) 1.03 K/uL (1.20-3.40) L 04/22/23 19:00 [place] # (Auto) 0.58 K/uL (0.11-0.59) 04/22/23 19:00 Eos # (Auto) 0.19 K/uL (0.00-0.50) 04/22/23 19:00 Baso # (Auto) 0.06 K/uL (0.00-0.20) 04/22/23 19:00 Immature Gran # (Auto) 0.09 K/uL (0.01-0.20) 04/22/23 19:00 POC Sodium 139 mmol/L (135-144) 04/22/23 19:22 Sodium 137 mmol/L (136-145) 04/22/23 19:00 POC Potassium 4.7 mmol/L (3.3-5.0) 04/22/23 19:22 Potassium 4.4 mmol/L (3.5-5.1) 04/22/23 19:00 POC Chloride 105 mmol/L (101-112) 04/22/23 19: Chloride 102 mmol/L (98-107) 04/22/23 19:00 Carbon Dioxide 22 mmol/L (21-32) 04/22/23 19:00 POC Total CO2 22 mmol/L (24-31) L 04/22/23:22 Anion Gap 13 (3-11) H 04/22/23 19:00 POC Anion Gap 17.0 mmol/L (16-25) 04/22/23 19:22 POC BUN 42 mg/dl (7-18) H 04/22/23:22 BUN 34 mg/dl (6-23) H 04/22/23 19:00 Creatinine 1.86 mg/dl (0.6-1.4) H 04/22/23 19:00 POC Creatinine 1.9 mg/dl (0.6-1.3) H 04/22/23 19:22 Est Cr Clr Drug Dosing 37.1 ml/min 04/22/23 19:00 Est GFR ( Amer) 39.8 ml/min 04/22/23 19:00 Est GFR (Non-Af Amer) 34.4 ml/min 04/22/23 19:00 BUN/Creatinine Ratio 18.3 (10-20) 04/22/23 19:00 Glucose 161 mg/dl (70-99(Fasting)) H 04/22/23 19:00 POC Glucose (other) 165 mg/dl (70-99) H 04/22/23 19:22 Lactate 2.0 mmol/L (0.4-2.0) 04/22/23 19:10 Calcium 9.7 mg/dl (8.6-10.3) 04/22/23 19:00 POC Ioniz Calcium Thaddeus 1.18 mmol/l (1.12-1.32) 04/22/23 19:22 Phosphorus 4.1 mg/dl (2.5-4.9) 04/22/23 19:00 Magnesium 1.7 mg/dl (1.7-2.4) 04/22/23 19:00 Total Bilirubin 0.5 mg/dl (0.2-1.0) 04/22/23 19:00 Direct Bilirubin 0.1 mg/dl (0-0.2) 04/22/23 19:00 AST 22 U/L (13-39) 04/22/23 19:00 ALT 12 U/L (7-52) 04/22/23 19:00 Alkaline Phosphatase 86 U/L (34-104) 04/22/23 19:00 Total Creatine Kinase 98 U/L (30-223) 04/22/23 19:00 Total Protein 8.3 gm/dl (6.0-8.3) 04/22/23 19:00 Albumin 4.5 gm/dl (3.4-5.0) 04/22/23 19:00 Lipase 16 U/L (11-82) 04/22/23 19:00 Procalcitonin 0.21 ng/ml (0-0.5) 04/22/23 19:00 Urine Color Yellow 04/22/23 22:53 Urine Appearance Cloudy (Clear) A 04/22/23 22:53 Urine pH 6.0 (4.5-7.5) 04/22/23 22:53 Ur Specific [place] 1.012 (1.000-1.030) 04/22/23 22:53 Urine Protein 1+ (Negative) H 04/22/23 22:53 Urine Glucose (UA) Negative (Negative) 04/22/23 22:53 Urine Ketones Negative (Negative) 04/22/23 22:53 Urine Blood 2+ (Negative) H 04/22/23 22:53 Urine Nitrite Positive (Negative) A 04/22/23 22:53 Urine Bilirubin Negative (Negative) 04/22/23 22:53 Urine Urobilinogen Negative (Negative) 04/22/23 22:53 Ur Leukocyte Esterase 1+ (Negative) H 04/22/23 22:53 Urine WBC (Auto) >30 /hpf (0-5) H 04/22/23 22:53 Urine RBC (Auto) >30 /hpf (0-4) H 04/22/23 22:53 U Hyaline Cast (Auto) 1-5 /lpf (0-5) 04/22/23 22:53 U Epithel Cells (Auto) 0-5 /lpf (0-5) 04/22/23 22:53 Urine Bacteria (Auto) Negative (Negative) 04/22/23 22:53 Adenovirus (PCR) Not Detected (NotDetected) 04/22/23 19:30 B. pertussis DNA (PCR) Not Detected (NotDetected) 04/22/23 19:30 B.parapertussis DNA PCR Not Detected (NotDetected) 04/22/23 19:30 C. pneumoniae DNA (PCR) Not Detected (NotDetected) 04/22/23 19:30 Coronavirus OC43 (PCR) Not Detected (NotDetected) 04/22/23 19:30 Coronavirus HKU1 (PCR) Not Detected (NotDetected) 04/22/23 19:30 Coronavirus 229E (PCR) Not Detected (NotDetected) 04/22/23 19:30 SARS-CoV-2 (PCR) Not Detected (NotDetected) 04/22/23 19:30 Coronavirus NL63 (PCR) Not Detected (NotDetected) 04/22/23 19:30 Human Metapneumovir PCR Not Detected (NotDetected) 04/22/23 19:30 Influenza Type A (PCR) Not Detected (NotDetected) 04/22/23 19:30 Influenza Type B (PCR) Not Detected (NotDetected) 04/22/23 19:30 M. pneumoniae (PCR) Not Detected (NotDetected) 04/22/23 19:30 Parainfluenza 1 (PCR) Not Detected (NotDetected) 04/22/23 19:30 Parainfluenza 2 (PCR) Not Detected (NotDetected) 04/22/23 19:30 Parainfluenza 3 (PCR) Not Detected (NotDetected) 04/22/23 19:30 Parainfluenza 4 (PCR) Not Detected (NotDetected) 04/22/23 19:30 RSV (PCR) Not Detected (NotDetected) 04/22/23 19:30 Entero/Rhino (PCR) Not Detected (NotDetected) 04/22/23 19:30 Impressions Chest X-Ray 04/22/23 19:11 SINGLE VIEW CHEST CLINICAL HISTORY: Sepsis. FINDINGS: An AP, portable, upright chest radiograph is obtained. No prior studies are available for comparison at the time of dictation. The heart is enlarged. The pulmonary vasculature is noncongested. Nonspecific interstitial thickening is likely chronic. There is bibasilar scarring/atelectasis. No airspace consolidation or large pleural effusion is identified. No pneumothorax is seen. The skeletal structures are osteopenic. The bony thorax is grossly intact. IMPRESSION: Cardiomegaly with no acute cardiopulmonary abnormality identified. ACT 112: Negative or not required by law. Electronically signed by: Jin Covarrubias M.D. 04/22/2023 8:00 PM Abdomen/Pelvis CT 04/22/23 19:45 Exam(s): CT ABDOMEN + PELVIS Without Contrast EXAM: CT Abdomen and Pelvis Without Intravenous Contrast CLINICAL HISTORY: Reason for exam: sepsis, uti, marcela. TECHNIQUE: Axial computed tomography images of the abdomen and pelvis without intravenous contrast. CTDI is 24.18 mGy and DLP is 1272 mGy-cm. Automated exposure control was utilized for the study. A dose lowering technique was utilized adhering to the principles of ALARA. COMPARISON: No relevant prior studies available. FINDINGS: Lung bases: Unremarkable. No mass. No consolidation. Mediastinum: Small hiatus hernia. ABDOMEN: Liver: Unremarkable. Gallbladder and bile ducts: Unremarkable. No calcified stones. No ductal dilation. Pancreas: Unremarkable. No ductal dilation. Spleen: Unremarkable. No splenomegaly. Adrenals: Unremarkable. No mass. Kidneys and ureters: Unremarkable. No obstructing stones. No hydronephrosis. Stomach and bowel: Unremarkable. No obstruction. No mucosal thickening. PELVIS: Appendix: No findings to suggest acute appendicitis. Bladder: Unremarkable. No stones. Reproductive: Prostatectomy. ABDOMEN and PELVIS: Intraperitoneal space: Unremarkable. No free air. No significant fluid collection. Bones/joints: Severe degenerative disc disease changes seen in the lumbar spine. No acute fracture. No dislocation. Soft tissues: Unremarkable. Vasculature: Unremarkable. No abdominal aortic aneurysm. Lymph nodes: Unremarkable. No enlarged lymph nodes. IMPRESSION: No acute abdominal process identified Electronically signed by: Jon Cruz MD 04/22/23 20:35 PM Diagnostic Findings EKG as per my interpretation : Rate 115, sinus tachycardia, LAD, LAFB, inferior infarct, PVCs
[2023-04-23] MEDS ORDERED: CEFEPIME 2,000 MG/20 ML VIAL IV STA (00:06)
[2023-04-23] MEDS ORDERED: PROMETHAZINE HCL 6.25 MG in SODIUM CHLORIDE 0.9% 50 ML IV PRN (00:11)
[2023-04-23] MEDS ORDERED: traMADol HCL 50 MG TABLET PO PRN (00:11)
[2023-04-23] MEDS: MAGNESIUM SULFATE / D5W 1 GM/100 ML BAG IV SCH (00:51)
[2023-04-23 00:55] LABS: BUN Creatinine Ratio 16.9 (10-20); Calcium 8.5 mg/dl (8.6-10.3); Est GFR (African American) 42.3 ml/min; Est GFR (Non-African American) 36.5 ml/min; Potassium 4.1 mmol/L (3.5-5.1)
[2023-04-23 01:25] LABS: Thyroid Stimulating Hormone 0.901 uIu/ml (0.300-4.500)
[2023-04-23] MEDS ORDERED: LANTUS PER UNIT CHARGE SQ STA ×2 (01:30→04:11)
[2023-04-23] MEDS ORDERED: SODIUM CHLORIDE 0.9% 500 ML IV ONE (02:00)
[2023-04-23] MEDS ORDERED: CARBOHYDRATES FOR HYPOGLYCEMIA PO PRN (02:22)
[2023-04-23] MEDS ORDERED: GLUCOSE 40% GEL 15 GM TUBE PO PRN (02:22)
[2023-04-23] MEDS ORDERED: GLUCAGON FOR INJ 1 MG VIAL SQ PRN (02:22)
[2023-04-23] MEDS ORDERED: ACETAMINOPHEN 325 MG TAB PO PRN (02:22)
[2023-04-23] MEDS ORDERED: DEXTROSE 50% 50 ML SYRINGE IV PRN (02:22)
[2023-04-23] MEDS ORDERED: GLUCOSE 10 TAB/TUBE PO PRN (02:22)
[2023-04-23] MEDS ORDERED: SODIUM CHLORIDE 0.9% 1,000 ML IV ONE (03:00)
[2023-04-23] MEDS: INSULIN ASPART PER UNIT CHARGE SC SCH ×6 (04:22→20:16)
[2023-04-23] MEDS: HEPARIN SOD 5,000 UNIT/0.5 ML VIAL SQ SCH ×3 (06:16→20:17)
[2023-04-23 08:21] LABS: Estimated Average Glucose 177 mg/dl; Hemoglobin A1C 7.8 % (4.5-5.6)
[2023-04-23 09:31] LABS: A calco-baum cmplx NotReported Not Detected (NotDetected); Bact fragilis Not Reported Not Detected (NotDetected); Blood Culture Id Panel See PCR Comment (NotDetected); C auris Not Reported Not Detected (NotDetected); CTX-M Resistant Gene Not Detected (NotDetected); Calbicans Not Reported Not Detected (NotDetected); Candida glabrata Not Reported Not Detected (NotDetected); Candida krusei Not Reported Not Detected (NotDetected); Cneoformans/gatti Not Reported Not Detected (NotDetected); Cparapsilosis Not Reported Not Detected (NotDetected); E cloacae compx Not Reported Not Detected (NotDetected); Efaecalis Not Reported Not Detected (NotDetected); Efaecium Not Reported Not Detected (NotDetected); Enterobacterales DETECTED (NotDetected); Enterobacterales Not Reported DETECTED (NotDetected); Escherichia coli Not Reported DETECTED (NotDetected); H influenzae Not Reported Not Detected (NotDetected); IMP Resistant Gene Not Detected (NotDetected); K aerogenes Not Reported Not Detected (NotDetected); KPC Resistant Gene Not Detected (NotDetected); Koxytoca Not Reported Not Detected (NotDetected); Kpneumoniae grp Not Reported Not Detected (NotDetected); Lmonocyt Not Reported Not Detected (NotDetected); N meningitidis Not Reported Not Detected (NotDetected); NDM Resistant Gene Not Detected (NotDetected); OXA 48 Like Resistant Gene Not Detected (NotDetected); P aeruginosa Not Reported Not Detected (NotDetected); Proteus spp Not Reported Not Detected (NotDetected); Salmonella spp Not Reported Not Detected (NotDetected); Smarcescens Not Reported Not Detected (NotDetected); Staph lugdunensis Not Reported Not Detected (NotDetected); Staph spp. Not Reported Not Detected (NotDetected); Staphaureus Not Reported Not Detected (NotDetected); Staphepi Not Reported Not Detected (NotDetected); Stenmaltophilia Not Reported Not Detected (NotDetected); Strep agal(GrpB) Not Reported Not Detected (NotDetected); Strep pneum Not Reported Not Detected (NotDetected); Strep pyog (GrpA) Not Reported Not Detected (NotDetected); Strep spp Not Reported Not Detected (NotDetected); VIM Resistant Gene Not Detected (NotDetected); mcr-1 Colistin Resistant Gene Not Detected (NotDetected)
[2023-04-23] MEDS: CYANOCOBALAMIN (B-12) 500 MCG TABLET PO SCH (10:33)
[2023-04-23] MEDS: gemfibroziL 600 MG TAB PO SCH ×2 (10:33→20:16)
[2023-04-23] MEDS: PANTOprazole 40 MG TAB PO SCH (10:33)
[2023-04-23] MEDS ORDERED: PRAMOXINE 1% EXT PRN (11:45)
[2023-04-23] MEDS ORDERED: CEFEPIME 1,000 MG in SYRINGE 0 ML IV SCH (13:00)
[2023-04-23] MEDS: CEFEPIME 2,000 MG in SYRINGE 0 ML IV SCH (13:45)
--- NOTE | 2023-04-23 15:29 | Electrocardiogram Report ---
Test Reason : Blood Pressure : / mmHG Vent. Rate : 114 BPM Atrial Rate : 114 BPM P-R Int : 190 ms QRS Dur : 088 ms QT Int : 322 ms P-R-T Axes : 081 -55 083 degrees QTc Int : 443 ms Sinus tachycardia with occasional Premature ventricular complexes Left axis deviation Low voltage QRS Cannot rule out Anterior infarct , age undetermined Abnormal ECG No previous ECGs available Confirmed by Iron Barnes ([id number]) on 04/23/2023 3:29:15 PM Referred By: REFERRED SELF Confirmed By:Iron Barnes
[2023-04-23] MEDS: SODIUM CHLORIDE 0.9% 1,000 ML IV SCH (15:56)
[2023-04-23] MEDS ORDERED: INSULIN ASPART PER UNIT CHARGE SC SCH ×2 (18:15→21:00)
[2023-04-23] MEDS: LANTUS PER UNIT CHARGE SQ SCH (20:16)
[2023-04-23] MEDS: ROSUVASTATIN CALCIUM 20 MG TAB PO SCH (20:17)
[2023-04-24] MEDS: CEFEPIME 2,000 MG in SYRINGE 0 ML IV SCH ×2 (01:17→12:36)
[2023-04-24] MEDS: SODIUM CHLORIDE 0.9% 1,000 ML IV SCH ×2 (04:11→16:53)
[2023-04-24] MEDS: HEPARIN SOD 5,000 UNIT/0.5 ML VIAL SQ SCH ×3 (06:04→21:01)
[2023-04-24 07:35] LABS: Hematocrit (blood only) 33.9 % (42.0-52.0); Hemoglobin 11.4 g/dl (14.0-18.0); Mean Corpuscular Hemoglobin 29.8 pg (25.0-34.0); Mean Corpuscular Hgb Conc 33.6 g/dL (32.0-36.0); Mean Corpuscular Volume 88.5 fL (80.0-100.0); Mean Platelet Volume 9.5 fL (9.4-12.4); Platelet Count 181 K/uL (130-400); RDW Coefficient of Variation 13.6 % (11.5-14.5); RDW Standard Deviation 43.8 fL (36.4-46.3); Red Blood Count 3.83 M/uL (4.70-6.10); White Blood Count 10.45 K/ul (4.8-10.8)
[2023-04-24 07:42] LABS: Calcium 8.6 mg/dl (8.6-10.3); Est GFR (African American) 51.7 ml/min; Est GFR (Non-African American) 44.6 ml/min; Magnesium 1.9 mg/dl (1.7-2.4); Phosphorus 2.1 mg/dl (2.5-4.9); Potassium 4.3 mmol/L (3.5-5.1)
--- NOTE | 2023-04-24 08:53 | Hospitalist Progress Note ---
Date of Service April 24, 2023 Assessment & Plan (1) Severe sepsis: Plan: SIRS plus ARF on CKD (baseline kidney dysfunction unknown) Gram negative bacteremia Secondary to complicated UTI CAIN Cr 1.86 on admission -> down to 1.5 now cont. to monitor Bacteremia blood cultx posit. for Gram negat. bacili repeat blood culture ordered Cont. cefepime started on admission will further discuss with ID UTI - outpt urine cultx - 100,000 Gram negat. Vick - results pending - urine cultx from ED - pending - started on Bactrim (took only 1 dose prior to presenting to hospital) - started on cefepime on admission, cont. for now - will further discuss w/ ID Follow outpatient urine CS, recent CBC, CHEM (to establish baseline hemoglobin, creatinine) from PCP's office (Dr. Blum) Hypertension, BP on the lower side , Appropriate to hold home BP meds for now - monitor BP Hyperlipidemia on statin Rx DM2 insulin requiring, unknown baseline control , trevor bolus insulin adjusted for clear liquid diet for now, ISS BG goal 110-140, carb count coverage, check hemoglobin A1c hx amyloidosis hx prostate cancer status post surgery short-term memory loss as per family, patient currently mentating well Anemia, unknown duration past tobacco abuse Basal bolus insulin adjusted for clear liquid diet for now, ISS BG goal 110-140, carb count coverage, current hemoglobin A1c 7.8% DVT prophylaxis. Heparin subcu Full code Patient - Ms. Teo Joyner, contact #[phone]. Admission and Anticipated Discharge Date Admission Date: April 23, 2023 Subjective Pt seen in follow up of sepsis, UTI, bacteremia Pt is currently sitting up in chair in NAD, feeling better overall Now afebrile No chest pain, shortness of breath, abd. pain. Dysuria on and off Requested u cultx results from [facility] - 100,000 gram negative Vick lactose change coordinator - final results pending Review of Systems Review of Systems: All systems reviewed & are unremarkable except as noted in Subjective Physical Exam Physical Exam: GENERAL: WD/WN M in NAD HEENT: NC/AT, Pale palpebral conjunctivae, no ptosis NECK : Supple, no tenderness CHEST : CTA, no tenderness HEART : RRR, no obvious murmurs ABDOMEN: Some distention, nontender EXTREMITIES : No LE swelling/tenderness, moves extremities SKIN: Pallor, warm NEUROLOGIC : awake and alert, able to answer simple questions appropriately, no facial asymmetry, moves extremities Results & Data Results & Data Vital Signs (Past 12 Hours) Vital Signs Temp Pulse Pulse Resp BP Pulse Ox O2 Del Method 04/24/23 07:57 36.9 C 90 16 122/72 96 Room Air 04/24/23 03:12 36.6 C 86 20 136/76 98 Room Air 04/24/23 00:09 36.8 C 98 H 20 116/67 95 Room Air 04/23/23 21:57 74 Laboratory Results 04/24/23 04/24/23 04/23/23 Range/Units 08:13 06:51 20:08 WBC 10.45 (4.8-10.8) K/ul RBC 3.83 L (4.70-6.10) M/uL Hgb 11.4 L (14.0-18.0) g/dl Hct 33.9 L (42.0-52.0) % MCV 88.5 (80.0-100.0) fL MCH 29.8 (25.0-34.0) pg MCHC 33.6 (32.0-36.0) g/dL RDW Std Deviation 43.8 (36.4-46.3) fL RDW Coeff of Natalie 13.6 (11.5-14.5) % Plt Count 181 (130-400) K/uL MPV 9.5 (9.4-12.4) fL Sodium 140 (136-145) mmol/L Potassium 4.3 (3.5-5.1) mmol/L Chloride 112 H (98-107) mmol/L Carbon Dioxide 21 (21-32) mmol/L Anion Gap 7 (3-11) BUN 21 (6-23) mg/dl Creatinine 1.50 H (0.6-1.4) mg/dl Est Cr Clr Drug Dosing 46.0 ml/min Est GFR ( Amer) 51.7 ml/min Est GFR (Non-Af Amer) 44.6 ml/min BUN/Creatinine Ratio 14.0 (10-20) Glucose 133 H (70-99(Fasting)) mg/dl POC Glucose 127 H 137 H (70-99) mg/dl Calcium 8.6 (8.6-10.3) mg/dl Phosphorus 2.1 L D (2.5-4.9) mg/dl Magnesium 1.9 (1.7-2.4) mg/dl Direct Bilirubin Enterobacterales (PCR) (NotDetected) E. coli (PCR) (NotDetected) mcr-1 Colistin Res Gene PCR (NotDetected) blaIMP Car res Gene PCR (NotDetected) KPC-Carbap Res Gene PCR (NotDetected) blaNDM Car Res Gene PCR (NotDetected) OXA-48 Carbapenem Resis Gene (PCR) (NotDetected) blaVIM Car Res Gene PCR (NotDetected) CTX-M Gene Resistance (PCR) (NotDetected) Bld Cult ID Panel PCR (NotDetected) 04/23/23 04/23/23 04/22/23 Range/Units 16:56 11:49 19:00 WBC (4.8-10.8) K/ul RBC (4.70-6.10) M/uL Hgb (14.0-18.0) g/dl Hct (42.0-52.0) % MCV (80.0-100.0) fL MCH (25.0-34.0) pg MCHC (32.0-36.0) g/dL RDW Std Deviation (36.4-46.3) fL RDW Coeff of Natalie (11.5-14.5) % Plt Count (130-400) K/uL MPV (9.4-12.4) fL Sodium (136-145) mmol/L Potassium (3.5-5.1) mmol/L Chloride (98-107) mmol/L Carbon Dioxide (21-32) mmol/L Anion Gap (3-11) BUN (6-23) mg/dl Creatinine (0.6-1.4) mg/dl Est Cr Clr Drug Dosing ml/min Est GFR ( Amer) ml/min Est GFR (Non-Af Amer) ml/min BUN/Creatinine Ratio (10-20) Glucose (70-99(Fasting)) mg/dl POC Glucose 109 H 164 H (70-99) mg/dl Calcium (8.6-10.3) mg/dl Phosphorus (2.5-4.9) mg/dl Magnesium (1.7-2.4) mg/dl Direct Bilirubin TNP Enterobacterales (PCR) DETECTED A (NotDetected) E. coli (PCR) DETECTED A (NotDetected) mcr-1 Colistin Res Gene PCR Not Detected (NotDetected) blaIMP Car res Gene PCR Not Detected (NotDetected) KPC-Carbap Res Gene PCR Not Detected (NotDetected) blaNDM Car Res Gene PCR Not Detected (NotDetected) OXA-48 Carbapenem Resis Gene (PCR) Not Detected (NotDetected) blaVIM Car Res Gene PCR Not Detected (NotDetected) CTX-M Gene Resistance (PCR) Not Detected (NotDetected) Bld Cult ID Panel PCR See PCR Comment (NotDetected) Medications Administered Current Inpatient Medications Acetaminophen (Acetaminophen 325 Mg Tab) 650 mg PO Q4H PRN PRN Reason: Pain or Fever Stop: 05/23/23 02:21 Cyanocobalamin (Cyanocobalamin (B-12) 500 Mcg Tablet) 1,000 mcg PO QAM [facility] Stop: 05/23/23 08:59 Last Admin: 04/23/23 10:33 Dose: 1,000 mcg Dextrose (Dextrose 50% 50 Ml Syringe) 25 - 50 ml IV UD PRN; Protocol PRN Reason: Hypoglycemia Protocol Stop: 05/23/23 02:21 Gemfibrozil (Gemfibrozil 600 Mg Tab) 600 mg PO AMHS [facility] Stop: 05/23/23 08:59 Last Admin: 04/23/23 20:16 Dose: 600 mg Glucagon (Glucagon For Inj 1 Mg Vial) 1 mg SQ UD PRN; Protocol PRN Reason: Hypoglycemia Protocol Stop: 05/23/23 02:21 Glucose (Glucose 10 Tab/Tube) 4 - 8 tab PO UD PRN; Protocol PRN Reason: Hypoglycemia Treatment Stop: 05/23/23 02:21 Glucose (Glucose 40% Gel 15 Gm Tube) 15 - 30 gm PO UD PRN; Protocol PRN Reason: Hypoglycemia Protocol Stop: 05/23/23 02:21 Heparin Sodium (Porcine) (Heparin Sod 5,000 Unit/0.5 Ml Vial) 5,000 units SQ Q8 [facility] Stop: 05/23/23 05:59 Last Admin: 04/24/23 06:04 Dose: 5,000 units Promethazine HCl 6.25 mg/ (Sodium Chloride) 50.25 mls @ 201 mls/hr IV Q6H PRN PRN Reason: Nausea And Vomiting Stop: 05/23/23 00:10 Cefepime HCl 2,000 mg/ Syringe 20 mls @ 5 mls/min IV Q12H [facility]; Protocol Stop: 05/07/23 12:59 Last Admin: 04/24/23 01:17 Dose: 5 mls/min Sodium Chloride (Nss) 1,000 mls @ 80 mls/hr IV .[id number] [facility] Stop: 05/23/23 15:44 Last Admin: 04/24/23 04:11 Dose: 80 mls/hr Insulin Aspart (Insulin Aspart Per Unit Charge) 0 units SC ACHS [facility] Stop: 05/23/23 18:14 Last Admin: 04/23/23 20:16 Dose: Not Given Insulin Glargine (Lantus Per Unit Charge) 5 units SQ HS [facility] Stop: 05/23/23 20:59 Last Admin: 04/23/23 20:16 Dose: 5 units Miscellaneous (Carbohydrates For Hypoglycemia ) 15 - 30 gm PO UD PRN PRN Reason: Hypoglycemia Protocol Stop: 05/23/23 02:21 Pramoxine 1% Lotion: Non-Formulary Patient's Own Med 1 each EXT PRN PRN PRN Reason: Itching/Irritation Stop: 05/23/23 11:44 Pantoprazole Sodium (Pantoprazole 40 Mg Tab) 40 mg PO QAM [facility] Stop: 05/23/23 08:59 Last Admin: 04/23/23 10:33 Dose: 40 mg Rosuvastatin Calcium (Rosuvastatin Calcium 20 Mg Tab) 20 mg PO HS [facility] Stop: 05/23/23 20:59 Last Admin: 04/23/23 20:17 Dose: 20 mg Tramadol HCl (Tramadol Hcl 50 Mg Tablet) 25 mg PO Q4H PRN PRN Reason: Pain Stop: 05/23/23 00:10
[2023-04-24] MEDS: PANTOprazole 40 MG TAB PO SCH (09:03)
[2023-04-24] MEDS: CYANOCOBALAMIN (B-12) 500 MCG TABLET PO SCH (09:03)
[2023-04-24] MEDS: gemfibroziL 600 MG TAB PO SCH ×2 (09:03→21:02)
[2023-04-24] MEDS: INSULIN ASPART PER UNIT CHARGE SC SCH ×4 (09:22→21:01)
[2023-04-24] MEDS: LANTUS PER UNIT CHARGE SQ SCH (21:00)
[2023-04-24] MEDS: ROSUVASTATIN CALCIUM 20 MG TAB PO SCH (21:02)
[2023-04-25] MEDS: CEFEPIME 2,000 MG in SYRINGE 0 ML IV SCH (01:02)
[2023-04-25] MEDS: SODIUM CHLORIDE 0.9% 1,000 ML IV SCH (04:03)
[2023-04-25 06:37] LABS: Hematocrit (blood only) 32.3 % (42.0-52.0); Hemoglobin 11.3 g/dl (14.0-18.0); Mean Corpuscular Hemoglobin 30.2 pg (25.0-34.0); Mean Corpuscular Volume 86.4 fL (80.0-100.0); Mean Platelet Volume 9.4 fL (9.4-12.4); Platelet Count 206 K/uL (130-400); RDW Coefficient of Variation 13.4 % (11.5-14.5); RDW Standard Deviation 42.2 fL (36.4-46.3); Red Blood Count 3.74 M/uL (4.70-6.10); White Blood Count 7.46 K/ul (4.8-10.8)
[2023-04-25 07:05] LABS: BUN Creatinine Ratio 14.1 (10-20); Calcium 8.8 mg/dl (8.6-10.3); Creatinine Clr Calc Pharmacy 51.1 ml/min; Est GFR (African American) 58.7 ml/min; Est GFR (Non-African American) 50.6 ml/min; Magnesium 1.8 mg/dl (1.7-2.4); Phosphorus 1.9 mg/dl (2.5-4.9); Potassium 3.8 mmol/L (3.5-5.1)
[2023-04-25] MEDS: CYANOCOBALAMIN (B-12) 500 MCG TABLET PO SCH (08:10)
[2023-04-25] MEDS: gemfibroziL 600 MG TAB PO SCH (08:11)
[2023-04-25] MEDS: INSULIN ASPART PER UNIT CHARGE SC SCH ×2 (09:13→13:23)
[2023-04-25] MEDS: HEPARIN SOD 5,000 UNIT/0.5 ML VIAL SQ SCH ×2 (09:16→14:16)
[2023-04-25] MEDS: PANTOprazole 40 MG TAB PO SCH (09:16)
--- NOTE | 2023-04-25 12:09 | Infectious Disease Consult ---
Date of Service April 25, 2023 Telehealth Information I performed this visit using a real-time telehealth connection between my location and the patients location ([facility]). After connecting through interactive tele-video, patient was identified by name and date of and/or wristband check.Patient (or authorized healthcare veterans contact representative) was informed that this was a telemedicine visit and it was being conducted confidentially over secure lines. My office door was closed and no one else was present in the room with me.Patient (or authorized healthcare veterans contact representative) provided consent to proceed with the visit, expressed an understanding of privacy and security of the telemedicine visit, and gave permission to have a hospital veterans contact representative in the room in order to assist with the visit and to conduct portions of the visit, as needed. I informed the patient (or authorized healthcare veterans contact representative) that I reviewed their record and presented the opportunity for them to ask any questions regarding the visit today. The patient agreed to participate. Assessment & Plan (1) Complicated urinary tract infection: History of Present Illness History of Present Illness The patient was admitted for fever . Workup revealed kirby-S E.coli bacteremia without any suggestion of pyelo or renal abscess on CT. The patient currently reports . Allergies Allergy/AdvReac Type Severity Reaction Status Date / Time Penicillins Allergy Unknown Verified 04/22/23 22:02 Home Medications Medication Instructions Recorded Confirmed Type alogliptin 1 dose PO QAM 04/22/23 04/22/23 History cholecalciferol (vitamin D3) 25 25 mcg PO QAM 04/22/23 04/22/23 History mcg (1,000 unit) tablet (Vitamin D3) cyanocobalamin (vitamin B-12) 1,000 mcg PO QAM 04/22/23 04/22/23 History 1,000 mcg tablet (Vitamin B-12) esomeprazole magnesium 40 mg 40 mg PO QAM 04/22/23 04/22/23 History capsule,delayed release gemfibrozil 600 mg tablet 600 mg PO AMHS 04/22/23 04/22/23 History insulin detemir U-100 100 unit/mL 45 unit subcut QPM 04/22/23 04/22/23 History (3 mL) subcutaneous pen (Levemir FlexPen) losartan 25 mg tablet 25 mg PO QAM 04/22/23 04/22/23 History rosuvastatin 40 mg tablet 20 mg PO HS 04/22/23 04/22/23 History sulfamethoxazole 800 1 tab PO DAILY 04/22/23 04/22/23 History mg-trimethoprim 160 mg tablet Patient History Medical History Neuropathy Diabetes Hyperlipidemia Hypertension Family History Other Family history non-contributory Social History Smoking Status: Former smoker Tobacco Type: Cigarettes Preferred Language: Japanese Communication Ability: Effective Bilingual Secretary Required: No Current Living Situation: Spouse Feels Safe at Home: Yes Assistive Devices: Crutches, Walker and Wheelchair Review of Systems As reviewed in HPI; a complete ROS was otherwise negative Physical Exam Vitals: see EMR Exam limited due to constraints of telemedicine Gen/Constitutional: appears at stated age, NAD, nontoxic, in bed Head: AT, NC, supplemental oxygen in place Eyes: pupils equal, sclera anicteric, EOMI, no conjunctival injection ENT: MMM, trachea midline, hearing grossly normal Card: appears to be well-perfused Resp: not tachypneic, nml effort, symmetric chest rise, no accessory muscle use Derm: no visible diaphoresis, no visible rash, no visible jaundiceNeuro: AAO, speaking in full sentences, speech intelligible Results & Data Vital Signs (Past 12 Hours) Vital Signs Temp Pulse Pulse Pulse Resp BP BP 04/25/23 11:17 36.9 C 82 16 136/83 04/25/23 07:35 36.9 C 96 H 16 144/89 H 04/25/23 05:50 93 H 04/25/23 02:33 36.7 C 87 18 134/77 04/25/23 00:36 82 Pulse Ox O2 Del Method 04/25/23 11:17 94 Room Air 04/25/23 07:35 94 Room Air 04/25/23 05:50 04/25/23 02:33 94 Room Air 04/25/23 00:36 Laboratory Results Reviewed; see EMR Diagnostic Findings Reviewed; see EMR
--- NOTE | 2023-04-25 12:41 | Infectious Disease Consult ---
Date of Service April 25, 2023 Telehealth Information I performed this visit using a real-time telehealth connection between my location and the patients location ([facility]). After connecting through interactive tele-video, patient was identified by name and date of and/or wristband check.Patient (or authorized healthcare practice representative) was informed that this was a telemedicine visit and it was being conducted confidentially over secure lines. My office door was closed and no one else was present in the room with me.Patient (or authorized healthcare practice representative) provided consent to proceed with the visit, expressed an understanding of privacy and security of the telemedicine visit, and gave permission to have a hospital practice representative in the room in order to assist with the visit and to conduct portions of the visit, as needed. I informed the patient (or authorized healthcare practice representative) that I reviewed their record and presented the opportunity for them to ask any questions regarding the visit today. The patient agreed to participate. Assessment & Plan (1) Complicated urinary tract infection: Plan: Continue IV ceftriaxone while admitted. Once stable for discharge, can convert to PO ABX. Ciprofloxacin and trimethoprim sulfamethoxazole both have excellent oral bioavailability. Either would be appropriate in this case. The choice between the two agents comes down to the patient's risk (fluoroquinolones: tendinopathy/tendon rupture, confusion, hyper/hypoglycemia, aortic dissection, etc vs trimethoprim sulfamethoxazole: SJS/TEN, GI upset, hemolysis if G6PD, bone marrow suppression, electrolyte abnormalities) and QTc. Duration of ABX will be seven days. ID is signing off. Contact us for any new issues. If any workup finalizes after ID signs off, forward the results (this is very important since ID is not automatically notified). History of Present Illness History of Present Illness The patient was admitted for dysuria and fever . Workup revealed kirby-S E.coli bacteremia. The patient currently reports feeling much better. Allergies Allergy/AdvReac Type Severity Reaction Status Date / Time Penicillins Allergy Unknown Verified 04/22/23 22:02 Home Medications Medication Instructions Recorded Confirmed Type alogliptin 1 dose PO QAM 04/22/23 04/22/23 History cholecalciferol (vitamin D3) 25 25 mcg PO QAM 04/22/23 04/22/23 History mcg (1,000 unit) tablet (Vitamin D3) cyanocobalamin (vitamin B-12) 1,000 mcg PO QAM 04/22/23 04/22/23 History 1,000 mcg tablet (Vitamin B-12) esomeprazole magnesium 40 mg 40 mg PO QAM 04/22/23 04/22/23 History capsule,delayed release gemfibrozil 600 mg tablet 600 mg PO AMHS 04/22/23 04/22/23 History insulin detemir U-100 100 unit/mL 45 unit subcut QPM 04/22/23 04/22/23 History (3 mL) subcutaneous pen (Levemir FlexPen) losartan 25 mg tablet 25 mg PO QAM 04/22/23 04/22/23 History rosuvastatin 40 mg tablet 20 mg PO HS 04/22/23 04/22/23 History sulfamethoxazole 800 1 tab PO DAILY 04/22/23 04/22/23 History mg-trimethoprim 160 mg tablet Patient History Medical History Neuropathy Diabetes Hyperlipidemia Hypertension Family History Other Family history non-contributory Social History Smoking Status: Former smoker Tobacco Type: Cigarettes Preferred Language: Swedish Communication Ability: Effective Rolls Baker Required: No Current Living Situation: Spouse Feels Safe at Home: Yes Assistive Devices: Crutches, Walker and Wheelchair Review of Systems As reviewed in HPI; a complete ROS was otherwise negative Physical Exam Vitals: see EMR Exam limited due to constraints of telemedicine Gen/Constitutional: appears at stated age, NAD, nontoxic, sitting up in bed Head: AT, NC, no supplemental oxygen in place Eyes: pupils equal, sclera anicteric, EOMI, no conjunctival injection ENT: MMM, trachea midline, hearing grossly normal Card: appears to be well-perfused Resp: not tachypneic, nml effort, symmetric chest rise, no accessory muscle use Derm: no visible diaphoresis, no visible rash, no visible jaundice Neuro: AAO, speaking in full sentences, speech intelligible Results & Data Vital Signs (Past 12 Hours) Vital Signs Temp Pulse Pulse Pulse Resp BP BP 04/25/23 11:17 36.9 C 82 16 136/83 04/25/23 07:35 36.9 C 96 H 16 144/89 H 04/25/23 05:50 93 H 04/25/23 02:33 36.7 C 87 18 134/77 Pulse Ox O2 Del Method 04/25/23 11:17 94 Room Air 04/25/23 07:35 94 Room Air 04/25/23 05:50 04/25/23 02:33 94 Room Air Laboratory Results Reviewed; see EMR Diagnostic Findings Reviewed; see EMR
[2023-04-25] MEDS ORDERED: cefTRIAXone SODIUM 2,000 MG in DEXTROSE 5 % MINI-B 50 ML IV SCH (13:00)
--- NOTE | 2023-04-25 13:42 | Discharge Summary ---
Date of Service April 25, 2023 Admission HPI Per Admitting Provider History obtained from patient, family, and records. Medical history significant for hypertension, hyperlipidemia, DM2 insulin requiring, CRI (unknown baseline), amyloidosis, prostate cancer status post surgery, history urolithiasis, GERD, short-term memory loss as per family, past tobacco abuse. Patient is a resident of [place], [place] who is currently in town to celebrate the birthday of her daughter who lives locally. Yesterday morning, patient woke up feeling weak. Some urinary retention without pain or gross hematuria. Increasing weakness noted. Patient seen at PCP's office yesterday. Outpatient UA showed possible infection. Bactrim prescribed by outpatient provider. Worsening weakness despite first dose of Bactrim prior to leaving home. Lowest SBP of 70s noted at the ER. IV ceftriaxone administered at the ER. Patient currently feeling much better. SBP currently 100s. 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 Admission Exam Per Admitting Provider GENERAL: Comfortable, pleasant, oriented to year no respiratory distress SKIN: Pallor, warm HEENT: Pale palpebral conjunctivae, no ptosis, dry buccal mucosa NECK : Supple, no tenderness CHEST : CTA, no tenderness HEART : RRR, no obvious murmurs ABDOMEN: Some distention, nontender EXTREMITIES : No LE swelling/tenderness, no other conspicuous deformities noted NEUROLOGIC : Coherent, no facial asymmetry, gait and stance not assessed Principal Diagnosis Sepsis, UTI CAIN Discharge Exam GENERAL: WD/WN M in NAD HEENT: NC/AT, Pale palpebral conjunctivae, no ptosis NECK : Supple, no tenderness CHEST : CTA, no tenderness HEART : RRR, no obvious murmurs ABDOMEN: Some distention, nontender EXTREMITIES : No LE swelling/tenderness, moves extremities SKIN: Pallor, warm NEUROLOGIC : awake and alert, able to answer simple questions appropriately, no facial asymmetry, moves extremities Discharge Data Allergies Allergy/AdvReac Type Severity Reaction Status Date / Time Penicillins Allergy Unknown Verified 04/22/23 22:02 Consultations 04/22/23 21:27 ED Decision to Admit Stat 04/23/23 05:25 HIM [Consult Health Information Management] Routine 04/24/23 13:48 Consult Infectious Diseases Routine Ordered Studies 04/22/23 19:45 CT abd pelvis wo con Stat FINDINGS: Lung bases: Unremarkable. No mass. No consolidation. Mediastinum: Small hiatus hernia. ABDOMEN: Liver: Unremarkable. Gallbladder and bile ducts: Unremarkable. No calcified stones. No ductal dilation. Pancreas: Unremarkable. No ductal dilation. Spleen: Unremarkable. No splenomegaly. Adrenals: Unremarkable. No mass. Kidneys and ureters: Unremarkable. No obstructing stones. No hydronephrosis. Stomach and bowel: Unremarkable. No obstruction. No mucosal thickening. PELVIS: Appendix: No findings to suggest acute appendicitis. Bladder: Unremarkable. No stones. Reproductive: Prostatectomy. ABDOMEN and PELVIS: Intraperitoneal space: Unremarkable. No free air. No significant fluid collection. Bones/joints: Severe degenerative disc disease changes seen in the lumbar spine. No acute fracture. No dislocation. Soft tissues: Unremarkable. Vasculature: Unremarkable. No abdominal aortic aneurysm. Lymph nodes: Unremarkable. No enlarged lymph nodes. IMPRESSION: No acute abdominal process identified Hospital Course (1) Severe sepsis: SIRS plus ARF on CKD (baseline kidney dysfunction unknown) Gram negative bacteremia Secondary to complicated UTI CAIN Cr 1.86 on admission -> down to 1.35 now baseline Cr per outside labs review - 1.5 cont. to monitor Bacteremia blood cultx posit. for Gram negat. bacili - E.coli - pansensitive repeat blood culture ordered- negat. so far Continued cefepime and switched to ceftriaxone ID consulted - can continue w/ Bactrim for total of 7 days of antibiotic UTI - outpt urine cultx - 100,000 Gram negat. Vick - E.coli - pansensitive (outside lab results obtained and reviewed) - urine cultx from ED - low counts of bacteria poss. skin kellen - nonspecific - started on Bactrim as outpt (took only 1 dose prior to presenting to hospital) - started on cefepime on admission, continued and switched to ceftriaxone - discussed w/ ID - cont bactrim as outpt to finish total 7 day course Follow up with PCP's office (Dr. Blum) arranged Hypertension, BP on the lower side initially , Appropriate to hold home BP meds - can resume on discharge - monitor BP Hyperlipidemia on statin Rx DM2 insulin requiring, unknown baseline control , basal bolus insulin adjusted for clear liquid diet for now, ISS BG goal 110-140, carb count coverage, current hemoglobin A1c 7.8% hx amyloidosis hx prostate cancer status post surgery short-term memory loss as per family, patient currently mentating well Anemia, unknown duration past tobacco abuse Total Time Total Time Spent Total Time Spent (In Minutes): 40 Discharge Plan Discharge Items Patient Disposition: Home - Self-Care Reason For Visit: SEPSIS Discharge Diagnosis: Sepsis, UTI CAIN Activity: Per Instructions section Non-emergency contact: Primary Care Provider Call non-emergency contact if: you have any medication questions and your symptoms worsen Follow-up/Referrals: Aurelio Blum MD [Primary Care Provider] - 04/30/23 11:00 am Diet: Carb Consistent or DM2 and Heart Healthy Addtl Attending Provider Instructions: Follow up with your primary care doctor within 1 week. The appointment was scheduled for you 04/30/2023. Take antibiotic - Bactrim - for 4 more days. Pending Studies at Discharge: Yes Studies:: final results of repeat blood cultx Stand-Alone Forms: My 1001 Menus, Smoking Cessation Medications and DC Order Prescriptions: Continued Levemir FlexPen 100 unit/mL (3 mL) insulin pen 45 unit SUBCUT QPM sulfamethoxazole-trimethoprim 800-160 mg tablet 1 tab PO DAILY Rx Instructions: take for 7 days ordered 04/22/23 esomeprazole magnesium 40 mg capsule,delayed release(DR/EC) 40 mg PO QAM rosuvastatin 40 mg tablet 20 mg PO HS Rx Instructions: 1/2 tablet dose gemfibrozil 600 mg tablet 600 mg PO AMHS losartan 25 mg tablet 25 mg PO QAM alogliptin 1 dose PO QAM Rx Instructions: pt doesnt know the strength of this med cyanocobalamin (vitamin B-12) [Vitamin B-12] 1,000 mcg Tablet 1,000 mcg PO QAM cholecalciferol (vitamin D3) [Vitamin D3] 25 mcg (1,000 unit) Tablet 25 mcg PO QAM Discharge Orders: Discharge Order (Routine); Ordered 04/25/23 Ordered By: Teo Robbins/Other Patient Handouts: Managing Type 2 Diabetes, Special Foot Care for Diabetes Admission Data Admit Date/Time: 04/23/23 00:08 Attending Provider: Teo Zazueta Admit Provider: Gabriel Melo Primary Care Provider: Aurelio Blum Other Providers: Gabriel Melo; Ronnell Sandoval; Mario Alberto Saldivar; Juliano Barboza I.; Speedy Santiago II; Yesica Saxena; Yomi Huston; John Zacarias; Devon Cano
== END 2023-04-25 17:00 | disposition home or self-care (01) | DRG 872 ==
LOC: ED 18:49 → EDINP 04-23 00:08 → 2N 04-23 02:22